=== PATIENT | male | born 1970 | race Caucasian/White ===

== ENCOUNTER 2023-09-13 05:53 | Emergency (ER) | payer BC, OTHER ==
--- NOTE | 2023-09-13 06:01 | ED Physician Documentation ---
PD HPI CHEST PAIN - Stated complaint Stated Complaint: CP/TIGHNESS - History obtained from History obtained from: Patient - Additional information Additional information: HPI from patient. Patient c/o chest tightness across anterior chest since yesterday, radiating to upper back and bilateral posterolateral neck. Describes the discomfort as tightness. Denies dyspnea, n/v, leg swelling. Denies h/o similar symptoms. Pain is currently severity of 2 (1-10 scale). Pain is exacerbated with certain positions such as bending forward; no exertional component. Patient took ASA 81mg x 2 [employer] as well as TUMS without change in symptoms. He takes lisinopril for HTN Review of Systems Constitutional: reports: Reviewed and negative Cardiac: reports: Chest pain / pressure. denies: Palpitations, Pedal edema, Calf pain Respiratory: reports: Reviewed and negative GI: reports: Reviewed and negative Musculoskeletal: denies: Extremity swelling PD PAST MEDICAL HISTORY - Past Medical History Past Medical History: Yes Cardiovascular: Hypertension - Present Medications Home Medications: Ambulatory Orders Medication Instructions Recorded Confirmed Lisinopril [Zestril] 1 tab PO DAILY 09/13/23 09/13/23 Sildenafil Citrate 1 tab PO DAILY PRN 09/13/23 09/13/23 - Allergies Allergies/Adverse Reactions: Allergies Allergy/AdvReac Type Severity Reaction Status Date / Time No Known Drug Allergies Allergy Verified 09/13/23 06:07 PD ED PE NORMAL - Vitals Vital signs reviewed: Yes - General General: Alert and oriented X 3, No acute distress, Well developed/nourished - Cardiac Cardiac: RRR, No murmur, No gallop, No rub - Respiratory Respiratory: No respiratory distress, Clear bilaterally - Abdomen Abdomen: Soft, Non tender - Extremities Extremities: No edema Results - Vitals Vitals: Vital Signs - 24 hr 09/13/23 06:04 Temperature 36.3 C L Heart Rate 100 Respiratory 18 Rate Blood Pressure 157/97 H O2 Saturation 98 Oxygen O2 Source Room air - EKG (time done) No standard instances EKG releavant findings:: EKG personally interpreted by author of this note. Relevant findings are: Rate: Rate (enter#) (90) Rhythm: NSR [place]: LAD, Anterior hemiblock Intervals: Normal AL, RBBB (incomplete) Ischemia: Normal ST segments, T wave inversion (III (biphasic), flat T aVF). No: Q waves - Labs Labs: Laboratory Tests 09/13/23 09/13/23 06:06 06:06 WBC 10.6 RBC 5.45 Hgb 16.7 Hct 49.0 MCV 89.9 MCH 30.6 MCHC 34.1 RDW 12.8 Plt Count 229 MPV 10.5 Neut # (Auto) 6.7 H Lymph # (Auto) 2.7 [place] # (Auto) 1.0 Eos # (Auto) 0.2 Baso # (Auto) 0.0 Absolute Nucleated RBC 0.00 Nucleated RBC % 0.0 Sodium 137 Potassium 3.5 Chloride 103 Carbon Dioxide 24 Anion Gap 10.0 BUN 19 Creatinine 0.9 Estimated GFR (MDRD) 89 Glucose 94 Calcium 10.2 Total Bilirubin 0.8 AST 21 ALT 18 Alkaline Phosphatase 101 Troponin I High Sens 37.6 H* Total Protein 7.6 Albumin 4.7 Globulin 2.9 Albumin/Globulin Ratio 1.6 Lipase 14 - Rads (name of study) chest xray Relevant Findings:: Prelim report reviewed, See rad report PD Medical Decision Making - ED course Complexity details: reviewed results, re-evaluated patient, considered differential, d/w patient ED course: Normal CBC and ER abdominal panel with sole exception (on CBC) of high neutrophils (irrelevant finding considering normal WBC and remainder of WBC differential is normal). He has mildly elevated hs-cTn and thus plan is 2-hour hs-cTn repeat. This result is pending at end of my shift and thus care of patient is turned over to oncoming ED physician (Dr. Riggins)
[2023-09-13 06:26] LABS: BASOPHILS % (AUTO) 0.4 %; EOSINOPHILS # (AUTO) 0.2 10^3/uL (0.0-0.7); EOSINOPHILS % (AUTO) 1.8 %; HGB - HEMOGLOBIN 16.7 g/dL (14.0-18.0); LYMPHOCYTES # (AUTO) 2.7 10^3/uL (1.5-3.5); LYMPHOCYTES % (AUTO) 25.3 %; MEAN CORPUSCULAR HEMOGLOBIN 30.6 pg (27.0-31.0); MEAN CORPUSCULAR HGB CONC 34.1 g/dL (32.0-36.0); MEAN CORPUSCULAR VOLUME 89.9 fL (80.0-94.0); MEAN PLATELET VOLUME 10.5 fL (7.4-11.4); MONOCYTES % (AUTO) 9.2 %; NEUTROPHILS # (AUTO) 6.7 10^3/uL (1.5-6.6); NEUTROPHILS % (AUTO) 62.8 %; PLT - PLATELET COUNT 229 10^3/uL (130-450); RED BLOOD COUNT 5.45 10^6/uL (4.70-6.10); RED CELL DISTRIBUTION WIDTH 12.8 % (12.0-15.0); WHITE BLOOD COUNT 10.6 x10^3/uL (4.8-10.8)
[2023-09-13 06:41] LABS: ALBUMIN 4.7 g/dL (3.2-5.5); ALBUMIN/GLOBULIN RATIO 1.6 (1.0-2.2); BILIRUBIN,TOTAL 0.8 mg/dL (0.2-1.0); CALCIUM 10.2 mg/dL (8.5-10.3); CREATININE 0.9 mg/dL (0.6-1.3); POTASSIUM 3.5 mmol/L (3.5-4.5); TOTAL PROTEIN 7.6 g/dL (6.4-8.9)
[2023-09-13 06:50] LABS: TROPONIN I HIGH SENSITIVITY 37.6 ng/L (2.3-19.7)
--- NOTE | 2023-09-13 07:13 | XRAY Report ---
PROCEDURE: Chest 2V INDICATIONS: chest pain TECHNIQUE: 2 views of the chest were acquired. COMPARISON: None. FINDINGS: Surgical changes and devices: None. Lungs and pleura: Minimal patchy opacities can be seen within both lungs. Low lung volumes can be se en, causing a crowded appearance to the lung markings. No pneumothorax or pleural effusions can be s een. Mediastinum: Mediastinal contours appear normal. Heart size is normal. Bones and chest wall: No suspicious bony lesions. Overlying soft tissues appear unremarkable. IMPRESSION: Lobe lung volumes, with minimal interstitial opacities on both sides. Differential diagnosis includes artifact versus mild atypical infiltrate. Reviewed by: Christopher Navarro MD on 09/13/2023 6:12 AM LEIF Approved by: Christopher Navarro MD on 09/13/2023 6:12 AM LEIF Station ID: [id number]
--- NOTE | 2023-09-13 09:10 | ED Physician Documentation ---
ED Addendum - Addendum Addendum: 09/13/23 09:08 The patient's repeat troponin is down to 29 from 37. Both are minimally elevated above normal and do not represent an acute coronary syndrome. His pain was not improved or affected by antacids prior to arrival nor last night. There is mild pleuritic component with deep breathing. We could go with anti-inflammatory over the next several days. He was reassured no signs of more significant process. Disposition: Patient discharged home in stable condition. Diagnoses: 1. Anterior chest pain of uncertain etiology 2. Ruled out for myocardial infarction
[2023-09-13 09:23] VITALS: BP 144/95; O2SAT 96
[2023-09-13] MEDS: KETOROLAC 15 MG/ML VIAL IVP STA (09:25)
== END 2023-09-13 09:29 | disposition home or self-care (01) ==
LOC: ED 05:53
DX: R07.89 Other chest pain (principal); I10 Essential (primary) hypertension
CPT/HCPCS: 36415; 80053; 83690; 84484; 85025; 93005; 96374; 99284